=== PATIENT | female | born 1965 | race Caucasian/White ===

== ENCOUNTER → 2017-08-30 | Outpatient (CLI) | payer BC ==
[~2017-08-30] MED LIST: ASPI81TA28 PO; CALC600T9; CETI10TA84 PO; LISI-787 PEG; NASOCORT NAE; OMEGCAP2; SIMV20TA5 PO; VIT C
--- NOTE | 2017-08-30 13:38 | MAMMOGRAPHY REPORT ---
BILATERAL DIGITAL SCREENING MAMMOGRAM TOMOSYNTHESIS WITH CAD: 08/30/2017 CLINICAL HISTORY: Routine screening. Patient has no complaints. TECHNIQUE: Breast tomosynthesis in addition to standard 2D mammography was performed. Current study was also evaluated with a Computer Aided Detection (CAD) system. COMPARISON: Comparison is made to exams dated: 08/28/2016 mammogram, 08/24/2015 mammogram, 08/23/2014 m ammogram, 08/18/2013 mammogram, 08/11/2012 mammogram, and 08/08/2011 mammogram - [facility]. BREAST COMPOSITION: There are scattered areas of fibroglandular density in both breasts. FINDINGS: No suspicious masses, calcifications, or areas of architectural distortion are noted in ei ther breast. There has been no significant interval change compared to prior exams. Asymmetry in the left upper outer quadrant is stable compared to multiple prior exams including the 2008 exam, and co nsidered benign given long-term stability. IMPRESSION: ACR BI-RADS CATEGORY 2: BENIGN There is no mammographic evidence of malignancy. A 1 year screening mammogram is recommended. The pa tient will receive written notification of the results. Approximately 10% of breast cancers are not detected with mammography. A negative mammographic report should not delay biopsy if a clinically suggestive mass is present. Ursula Zelaya M.D. /:08/30/2017 08:00:22 Motor Vehicle Salesperson: Eveline Echols, M, [facility] letter sent: Normal 1/2 BI-RADS Code: ACR BI-RADS Category 2: Benign
== END | disposition home or self-care (01) ==
LOC: C.MAMM 07:29
PROVIDERS: ATTEND Obstetrics & Gynecology
DX: Z12.31 Encounter for screening mammogram for malignant neoplasm of breast (principal)

== ENCOUNTER → 2018-01-15 | Outpatient (CLI) | payer BC, OTHER | END | disposition home or self-care (01) | LOC: C.RDSM 07:52 | PROVIDERS: ATTEND Podiatrist | DX: M79.671 Pain in right foot (principal); M79.672 Pain in left foot ==

== ENCOUNTER → 2018-01-22 | Outpatient (CLI) | payer OTHER ==
--- NOTE | 2018-01-22 08:41 | DIAGNOSTIC IMAGING REPORT ---
R LOWER EXT NONJOINT WITHOUT CLINICAL HISTORY: 52 years-old Female presenting with RT FOOT PAIN. TECHNIQUE: Multisequence, multiplanar MR imaging of the right foot was performed without the use of intravenous contrast. IV contrast: None. COMPARISON: Plain radiographs from 01/15/2018. FINDINGS: Localizer images: Unremarkable. No bony edema. A bone island may be present in the first metatarsal head. No advanced degenerative change. Mild distention of the intermetatarsal bursae in the first and third interweb spaces. No soft tissue mass lesion is apparent allowing for noncontrast technique. Normal muscle bulk and muscle signal intensity. Ligaments and tendons of the forefoot are within normal limits. IMPRESSION: 1. Mild distention of intermetatarsal bursae in the first and third interweb space's. Without significant surrounding inflammatory change, this is nonspecific. Intermetatarsal bursitis cannot be excluded. No other MR abnormality. Electronically signed by: Feliz Malik M.D. 01/22/2018 8:40 AM Dictated Date/Time: 01/22/2018 8:34 AM
--- NOTE | 2018-01-22 09:08 | DIAGNOSTIC IMAGING REPORT ---
MRI OF THE RIGHT HINDFOOT AND MIDFOOT WITHOUT CONTRAST CLINICAL HISTORY: Right foot pain. Possible fibromas. COMPARISON STUDY: Right foot radiographs January 15, 2018. TECHNIQUE: Utilizing a 1.5 Liana magnet and dedicated coil, multiplanar, multiecho imaging of the right hindfoot and midfoot was performed without intravenous or intraarticular contrast. FINDINGS: Please note that the MRI of the right forefoot will be reported separately. The talar dome is intact. No marrow edema or marrow replacement is present. There is minimal signal within the peroneus longus. No full-thickness tear is present. The flexor and extensor tendons are intact. A small multiloculated cystic abnormality posterior to the talus suggest a ganglion cyst. There is a small tibiotalar joint effusion. Achilles tendon is unremarkable. Note is made of several subcentimeter nodules along the inferior margin of the plantar fascia located at the level the proximal metatarsals. These measure up to 7 mm. At least 3 nodules are noted. No additional soft tissue masses are identified. There is no evidence for fracture. IMPRESSION: 1. Multiple (at least 3) subcentimeter nodules along the plantar fascia at the level of the proximal metatarsals consistent with plantar fibromatosis. These nodules measure up to 7 mm. 2. Mild signal within the peroneus longus suggestive of mild tendinopathy. Electronically signed by: Maycol Campuzano M.D. 01/22/2018 9:07 AM Dictated Date/Time: 01/22/2018 8:43 AM
== END | disposition home or self-care (01) ==
LOC: C.MRIBC 06:53
PROVIDERS: ATTEND Podiatrist
DX: M72.2 Plantar fascial fibromatosis (principal); M79.671 Pain in right foot